=== PATIENT | male | born 1960 | race Hispanic/Latino ===

== ENCOUNTER 2020-11-18 13:06 | Inpatient (IN) | payer SELFPAY ==
[2020-11-18 13:33] LABS: Urine Blood NEGATIVE (Negative); Urine Glucose NEGATIVE (Negative); Urine Protein 3+ (NEG)
[2020-11-18] MEDS ORDERED: NA CHLORIDE 0.9% 1,000 ML ONE (13:36)
[2020-11-18 13:40] LABS: Barbiturates NEGATIVE (NEGATIVE); Benzodiazepines NEGATIVE (NEGATIVE); Cocaine NEGATIVE (NEGATIVE); METHAMPHETAM NEGATIVE (NEGATIVE); Methadone NEGATIVE (NEGATIVE); Opiates NEGATIVE (NEGATIVE); Phencyclidine NEGATIVE (NEGATIVE); THC Cannibis NEGATIVE (NEGATIVE)
[2020-11-18 13:45] LABS: Absolute Lymphocytes (CBC) 3.1 K/uL (0.7-4.9); Basophils % 0.5 % (0-1.3); Hematocrit 42.3 % (39.6-49.0); Lymphocytes % 33.9 % (15.3-44.8); MPV 8.2 fL (7.6-11.3); Protime INR 0.97; RBC Red Blood Cell Count 4.31 M/uL (4.33-5.43)
[2020-11-18 13:58] LABS: ALT/SGPT 69 U/L (12-78); AST/SGOT 35 U/L (15-37); Albumin 3.9 g/dL (3.4-5.0); Alkaline Phosphatase 90 U/L (45-117); BUN Blood Urea Nitrogen 11 mg/dL (7-18); Bicarbonate 24 mmol/L (21-32); Bilirubin Direct < 0.1 mg/dL (0-0.2); Bilirubin Total 0.3 mg/dL (0.2-1.0); Glucose Level 160 mg/dL (74-106); Potassium 3.4 mmol/L (3.5-5.1); Protein, Total 8.1 g/dL (6.4-8.2); Sodium Level 145 mmol/L (136-145)
[2020-11-18 13:59] LABS: Creatine Phosphokinase 67 U/L (39-308); Magnesium 2.2 mg/dL (1.8-2.4); NT PRO-BNP 33 pg/mL (<125); Troponin (Emerg Dept Use Only) < 0.02 ng/mL (0.0-0.045)
--- NOTE | 2020-11-18 14:25 | RAD REPORT ---
EXAM DESCRIPTION: CT - Head Brain Wo Cont - 11/18/2020 2:18 pm CLINICAL HISTORY: Alteration of awareness/confusion COMPARISON: None TECHNIQUE: Computed axial tomography of the head was obtained. IV contrast was not requested. All CT scans are performed using dose optimization technique as appropriate and may include automated exposure control or mA/KV adjustment according to patient size. FINDINGS: An intracranial bleed is not seen . The ventricles are normal in caliber. No extra-axial fluid collection is noted. Mild low-density areas within periventricular, deep and subcortical white matter likely represent is chemic changes secondary to small vessel disease. Fluid within the sinuses/ mastoids is not seen. IMPRESSION: No acute intracranial abnormality is seen. If patient's symptoms persist MRI of the bra in would be recommended.
--- NOTE | 2020-11-18 14:38 | RAD REPORT ---
EXAM DESCRIPTION: Matt Single View11/18/2020 1:28 pm CLINICAL HISTORY: Chest pain COMPARISON: none FINDINGS: The lungs appear clear of acute infiltrate. The heart is normal size IMPRESSION: No acute abnormalities displayed
--- NOTE | 2020-11-18 14:38 | RAD REPORT ---
EXAM DESCRIPTION: CT - Angio Aorta For Dissection - 11/18/2020 2:19 pm CLINICAL HISTORY: . Chest and abdominal pain COMPARISON: None TECHNIQUE: Computed tomography angiography of the chest, abdomen pelvis were obtained. 100 cc Isovue 370 was administered intravenously. Coronal and sagittal reconstruction were performed. MIP 3D reconstruction was performed All CT scans are performed using dose optimization technique as appropriate and may include automated exposure control or mA/KV adjustment according to patient size. FINDINGS: An aortic dissection is not seen. An aortic aneurysm is not displayed. The celiac, SMA and AISHWARYA are patent . A lung consolidation is not present. A pericardial effusion is not seen. A pleural effusion is not n oted. Fatty liver. Liver is mildly enlarged. Spleen, pancreas adrenals kidneys demonstrate no significant abnormality. The appendix is normal. There no evidence diverticulitis. No ascites is noted. Small to moderate left inguinal hernia contains fat IMPRESSION: Negative for an aortic dissection.
--- NOTE | 2020-11-18 15:37 | ER ---
Nurse's Notes [facility] Name: Martinez Zuniga Age: 60 yrs Sex: Male : 1960 Arrival Date: 11/18/2020 Time: 13:09 Bed 2 Private MD: Diagnosis: Altered mental status, unspecified;Chest pain, unspecified Presentation: 11/18 13:11 Chief complaint: EMS states: Toned out for unresponsive, upon arrival pt was locked hb behind his bedroom door, was able to walk and unlock door, noted to have slurred speech, diaphoretic, and confused. BP 150/110, HR 110s, R40s, SpO2 80% on RA, improved to 90% on NRB. 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 Pt c/o chest pain and reports driiking "one beer today.". Coronavirus screen: At this time, the client does not indicate any symptoms associated with coronavirus-19. Ebola Screen: No symptoms or risks identified at this time. Initial Sepsis Screen: Does the patient meet any 2 criteria? Altered Mental Status. HR > 90 bpm. Yes Does the patient have a suspected source of infection? No. Patient's initial sepsis screen is negative. Risk Assessment: Do you want to hurt yourself or someone else? Patient reports no desire to harm self or others. Onset of symptoms was November 18, 2020. 13:11 Method Of Arrival: EMS: [facility] hb 13:11 Acuity: MÓNICA 2 hb Historical: - Allergies: 13:17 No Known Allergies; hb - Home Meds: 13:17 None [Active]; hb - PMHx: 13:17 None; hb - PSHx: 13:17 None; hb - Immunization history:: Adult Immunizations up to date. - Social history:: Smoking status: Patient reports the use of cigarette tobacco products, denies chronic smoking, but will smoke occasionally. - Family history:: not pertinent. - Hospitalizations: : No recent hospitalization is reported. Screenin:34 Abuse screen: Denies threats or abuse. Denies injuries from another. Nutritional hb screening: No deficits noted. Tuberculosis screening: No symptoms or risk factors identified. Fall Risk Total Huffman Fall Scale indicates Low Risk Score (25-44 pts). Fall prevention measures have been instituted. Side Rails Up X 2 Frequent Obs/Assesments occuring As available Patient and Family Educated on Fall Prevention Program and strategies. Assessment: 13:25 General: Appears in no apparent distress. Behavior is calm, cooperative. Pain: Pain hb currently is 4 out of 10 on a pain scale. Neuro: Level of Consciousness is obeys commands, confused, lethargic, Oriented to person. Cardiovascular: Reports chest pain, diaphoresis, Capillary refill < 3 seconds Rhythm is regular. Respiratory: Airway is patent Respiratory effort is even, unlabored, Respiratory pattern is regular, symmetrical. GI: No signs and/or symptoms were reported involving the gastrointestinal system. : No signs and/or symptoms were reported regarding the genitourinary system. EENT: No signs and/or symptoms were reported regarding the EENT system. Derm: Skin is intact, Skin is diaphoretic, Skin is pale, Skin temperature is warm. Musculoskeletal: No signs and/or symptoms reported regarding the musculoskeletal system. 14:30 Reassessment: Patient appears in no apparent distress at this time. Patient and/or hb family updated on plan of care and expected duration. Pain level reassessed. Patient is alert, oriented x 3, equal unlabored respirations, skin warm/dry/pink. 15:30 Reassessment: Patient appears in no apparent distress at this time. Patient and/or hb family updated on plan of care and expected duration. Pain level reassessed. Patient is alert, oriented x 3, equal unlabored respirations, skin warm/dry/pink. 16:30 Reassessment: Patient appears in no apparent distress at this time. Patient and/or hb family updated on plan of care and expected duration. Pain level reassessed. Patient is alert, oriented x 3, equal unlabored respirations, skin warm/dry/pink. 17:30 Reassessment: Patient appears in no apparent distress at this time. Patient and/or hb family updated on plan of care and expected duration. Pain level reassessed. Patient is alert, oriented x 3, equal unlabored respirations, skin warm/dry/pink. Vital Signs: 13:11 BP 161 / 84; Pulse 93; Resp 18; Temp 97.8(O); Pulse Ox 88% on R/A; Pain 5/10; hb 14:30 BP 162 / 79; Pulse 85; Resp 15; Pulse Ox 97% on R/A; hb 15:30 BP 170 / 82; Pulse 88; Resp 17; Pulse Ox 99% on R/A; hb 17:30 BP 168 / 70; Pulse 82; Resp 16; Pulse Ox 97% on 2 lpm NC; hb ED Course: 13:07 EKG done, by ED staff, reviewed by Fede Phillips MD. sv 13:09 Patient arrived in ED. rn 13:09 Fede Phillips MD is Attending Physician. rn 13:11 Bernarda Moe RN is Primary Nurse. hb 13:16 Triage completed. hb 13:17 Arm band placed on. hb 13:27 XRAY Chest (1 view) In Process Unspecified. EDMS 13:27 Urine collected: clean catch specimen, clear. mh5 13:27 Patient has correct armband on for positive identification. Placed in gown. Bed in low mh5 position. Call light in reach. Side rails up X 1. Side rails up X2. environmental monitoring technician on. Pulse ox on. NIBP on. 13:29 Inserted saline lock: 20 gauge in right antecubital area, using aseptic technique. hb Blood collected. 13:32 Maintain EMS IV. Dressing intact. Good blood return noted. Site clean \\T\\ dry. Gauge \\T\\ hb site: 18g LAC. 14:18 CT Head Brain wo Cont In Process Unspecified. EDMS 14:19 CT Aorta for Dissection In Process Unspecified. EDMS 15:36 Uriel Perez is Hospitalizing Provider. rn 17:30 No provider procedures requiring assistance completed. Patient admitted, IV remains in hb place. Administered Medications: 13:34 Drug: NS 0.9% 1000 ml Route: IV; Rate: 1000 ml; Site: right antecubital; hb Outcome: 15:37 Decision to Hospitalize by Provider. rn 17:30 Admitted to Tele accompanied by tech, via wheelchair, room 216, with oxygen, with hb chart, Report called to Vanesa RN 17:30 Condition: stable 17:30 Instructed on the need for admit, Demonstrated understanding of instructions. 18:24 Patient left the ED. hb Signatures: Dispatcher [employer] EDMS Sherry Poe RN RN sv Nieto, Roman, MD MD rn Baxter, Heather, RN RN hb Martinez, Maria [facility]
--- NOTE | 2020-11-18 15:37 | EDPHYS ---
Physician Documentation [facility] Name: Martinez Zuniga Age: 60 yrs Sex: Male : 1960 Arrival Date: 11/18/2020 Time: 13:09 Bed 2 Private MD: ED Physician Fede Phillips HPI: 11/18 13:26 This 60 yrs old Male presents to ER via EMS with complaints of Altered Mental rn Status. 13:26 The patient presents with decreased responsiveness. Onset: The symptoms/episode rn began/occurred this morning, at an unknown time. Possible causes: unknown. Current symptoms: In the emergency department the patient's symptoms have improved. It is unknown whether or not the patient has had similar symptoms in the past. EMS reports patient with decreased responsiveness, diaphoretic, low blood pressure, high heart rate. Improved with fluids and oxygen. Pt reports daily drinker, had "only one beer today". Reports mild chest tightness that began this morning, no radiation. . Historical: - Allergies: 13:17 No Known Allergies; hb - Home Meds: 13:17 None [Active]; hb - PMHx: 13:17 None; hb - PSHx: 13:17 None; hb - Immunization history:: Adult Immunizations up to date. - Social history:: Smoking status: Patient reports the use of cigarette tobacco products, denies chronic smoking, but will smoke occasionally. - Family history:: not pertinent. - Hospitalizations: : No recent hospitalization is reported. ROS: 13:26 Constitutional: Negative for fever, chills, and weight loss, Eyes: Negative for injury, rn pain, redness, and discharge, Cardiovascular: Negative, palpitations, and edema, + chest tightness Respiratory: Negative for shortness of breath, cough, wheezing, and pleuritic chest pain, Abdomen/GI: Negative for abdominal pain, nausea, vomiting, diarrhea, and constipation, MS/Extremity: Negative for injury and deformity, Skin: Negative for injury, rash, and discoloration, Neuro: Negative for headache, weakness, numbness, tingling, and seizure. 13:49 All other systems are negative. rn Exam: 13:49 Constitutional: This is a well developed, well nourished patient who is awake, rn somnolent, but answers all questions. + smells of ETOH. Head/Face: Normocephalic, atraumatic. Eyes: Pupils equal round and reactive to light, extra-ocular motions intact. Lids and lashes normal. Conjunctiva and sclera are non-icteric and not injected. Cornea within normal limits. Periorbital areas with no swelling, redness, or edema. ENT: dry MM Neck: Trachea midline, no thyromegaly or masses palpated, and no cervical lymphadenopathy. Supple, full range of motion without nuchal rigidity, or vertebral point tenderness. No Meningismus. Cardiovascular: Regular rate and rhythm. No pulse deficits. Respiratory: No increased work of breathing, no retractions or nasal flaring. Abdomen/GI: soft, non-tender Skin: Warm, dry MS/ Extremity: Pulses equal, no cyanosis. Neuro: Awake, GCS 15, oriented to person, place, time, and situation. Cranial nerves II-XII grossly intact. Motor strength 5/5 in all extremities. Sensory grossly intact. Vital Signs: 13:11 BP 161 / 84; Pulse 93; Resp 18; Temp 97.8(O); Pulse Ox 88% on R/A; Pain 5/10; hb 14:30 BP 162 / 79; Pulse 85; Resp 15; Pulse Ox 97% on R/A; hb 15:30 BP 170 / 82; Pulse 88; Resp 17; Pulse Ox 99% on R/A; hb 17:30 BP 168 / 70; Pulse 82; Resp 16; Pulse Ox 97% on 2 lpm NC; hb MDM: 13:09 Patient medically screened. rn 15:33 Differential Diagnosis: CVA, hypoglycemia, pneumonia, seizure, sepsis, TIA, UTI, volume rn depletion, AMI. Data reviewed: vital signs, nurses notes, lab test result(s), EKG, radiologic studies, CT scan, plain films, and as a result, I will admit patient. Counseling: I had a detailed discussion with the patient and/or guardian regarding: the historical points, exam findings, and any diagnostic results supporting the discharge/admit diagnosis, lab results, radiology results, the need for further work-up and treatment in the hospital. Response to treatment: the patient's symptoms have markedly improved after treatment, and as a result, I will discharge patient. Admission orders: after a detailed discussion of the patient's condition and case, the admit orders are written by me. ED course: Pt with neg ct head, neg ct aorta, + mild elevation of procal and lactate, patient feels much better, wants to go home, daughter and I convinced him to be observed with further testing given chest pain, hypotension at scene, confusion, and no obvious etiology. Will admit to Dr. Perez. . 11/18 13:12 Order name: Basic Metabolic Panel; Complete Time: 14:23 rn 11/18 13:12 Order name: CBC with Diff; Complete Time: 14:23 rn 11/18 13:12 Order name: LFT's; Complete Time: 14:23 rn 11/18 13:12 Order name: Magnesium; Complete Time: 14:23 rn 11/18 13:12 Order name: NT PRO-BNP; Complete Time: 14:23 rn 11/18 13:12 Order name: PT-INR; Complete Time: 14:23 rn 11/18 13:12 Order name: Troponin (emerg Dept Use Only); Complete Time: 14:23 rn 11/18 13:12 Order name: ETOH Level; Complete Time: 14:23 rn 11/18 13:12 Order name: Urine Drug Screen; Complete Time: 14:23 rn 11/18 13:12 Order name: CK; Complete Time: 14:23 rn 11/18 13:12 Order name: Procalcitonin; Complete Time: 14:30 11/18 13:12 Order name: Blood Culture Adult (2) rn 11/18 13:12 Order name: Lactate; Complete Time: 14:23 rn 11/18 13:12 Order name: CT Head Brain wo Cont; Complete Time: 14:30 rn 11/18 13:12 Order name: CT Aorta for Dissection; Complete Time: 14:40 11/18 13:12 Order name: XRAY Chest (1 view); Complete Time: 14:40 11/18 13:12 Order name: EKG; Complete Time: 13:13 11/18 13:12 Order name: Cardiac monitoring; Complete Time: 13:14 11/18 13:12 Order name: EKG - Nurse/Tech; Complete Time: 13:14 11/18 13:12 Order name: IV Saline Lock; Complete Time: 13:34 11/18 13:12 Order name: Labs collected and sent; Complete Time: 13:34 11/18 13:12 Order name: O2 Per Protocol; Complete Time: 13:18 rn 11/18 13:12 Order name: O2 Sat Monitoring; Complete Time: 13:18 rn 11/18 13:30 Order name: Urine Dipstick--Ancillary (enter results); Complete Time: 14:23 eb 11/18 14:37 Order name: SARS-COV-2 RT PCR; Complete Time: 14:40 EDFL 11/18 17:35 Order name: Lactate Sepsis 2 HR Follow-up EDFL Administered Medications: 13:34 Drug: NS 0.9% 1000 ml Route: IV; Rate: 1000 ml; Site: right antecubital; hb Disposition: 11/18/20 15:37 Hospitalization ordered by Uriel Perez for Observation. Preliminary diagnosis are Altered mental status, unspecified, Chest pain, unspecified. - Bed requested for Telemetry/MedSurg (observation). - Status is Observation. hb - Condition is Stable. - Problem is new. - Symptoms have improved. Signatures: Dispatcher [employer] EDFL Fede Phillips MD MD rn Baxter, Heather, RN RN hb Botello, Elizabeth eb Corrections: (The following items were deleted from the chart) 13:50 13:13 CORONAVIRUS+MR.LAB.BRZ ordered. [facility] EDFL 14:00 13:26 Constitutional: Negative for fever, chills, and weight loss, Eyes: Negative for rn injury, pain, redness, and discharge, Cardiovascular: Negative for chest pain, palpitations, and edema, Respiratory: Negative for shortness of breath, cough, wheezing, and pleuritic chest pain, Abdomen/GI: Negative for abdominal pain, nausea, vomiting, diarrhea, and constipation, MS/Extremity: Negative for injury and deformity, Skin: Negative for injury, rash, and discoloration, Neuro: Negative for headache, weakness, numbness, tingling, and seizure, rn 17:00 15:37 Hospitalization Ordered by Uriel Perez for Observation. Preliminary diagnosis eb is Altered mental status, unspecified; Chest pain, unspecified. Bed requested for Telemetry/MedSurg (observation). Status is Observation. Condition is Stable. Problem is new. Symptoms have improved. rn 18:24 17:00 11/18/2020 15:37 Hospitalization Ordered by Ureil Perez for Observation. hb Preliminary diagnosis is Altered mental status, unspecified; Chest pain, unspecified. Bed requested for Telemetry/MedSurg (observation). Status is Observation. Condition is Stable. Problem is new. Symptoms have improved. eb
--- NOTE | 2020-11-18 16:33 | P.HP ---
Patient History Date of Service: 11/18/20 Physical Examination - Studies Laboratory Data (last 24 hrs) 11/18/20 13:28: PT 11.2, INR 0.97 11/18/20 13:28: WBC 9.20, Hgb 14.4, Hct 42.3, Plt Count 273 11/18/20 13:28: Sodium 145, Potassium 3.4 L, BUN 11, Creatinine 1.26, Glucose 160 H, Magnesium 2.2, Total Bilirubin 0.3, AST 35, ALT 69, Alkaline Phosphatase 90 Assessment and Plan - Advance Directives Does patient have a Living Will: No Does patient have a Durable POA for Healthcare: No
--- NOTE | 2020-11-18 17:51 | P.HP ---
Certification for Inpatient Patient admitted to: Observation With expected LOS: <2 Midnights Practitioner: I am a practitioner with admitting privileges, knowledge of patient current condition, hospital course, and medical plan of care. Services: Services provided to patient in accordance with Admission requirements found in Title 42 Section 412.3 of the Code of Federal Regulations Patient History Date of Service: 11/18/20 Reason for admission: Hypotension History of Present Illness: 60 year old gentleman with no known past medical history except regular alcohol use was brought to the emergency department due to an episode of altered mental status and hypotension. Patient reports a bee sting while working outside in his yard. He went in the house to some garlic after which family reports patient became confused. 911 was called, per report EMS found him with low blood pressure. He was also found with SaO2 of 80%, respiratory rate of 40 with slurred speech. Patient placed on non-rebreather mask given IV fluid and brought to the emergency department. Workup in the emergency department is unremarkable except elevated lactic acid and mild elevation pro calcitonin. Patient was awake and oriented x4 during my examination in the ED and was without any symptoms. Vital stable, afebrile. He is placed under observation further monitoring. Allergies No Known Allergies Allergy (Unverified 11/18/20 17:20) - Past Medical/Surgical History -: None -: None - Family History Mother -: Diabetes - Social History Smoking Status: Current every day smoker Alcohol use: Yes CD- Drugs: No Place of Residence: Home Review of Systems Other: Except as documented, all other systems reviewed and negative. Physical Examination - Physical Exam General: Alert, In no apparent distress, Oriented x3 HEENT: Mucous membr. moist/pink Neck: Supple, JVD not distended, No Thyromegaly Respiratory: Clear to auscultation bilaterally, Normal air movement Cardiovascular: No edema, Regular rate/rhythm, Normal S1 S2, No murmurs Capillary refill: <2 Seconds Gastrointestinal: Normal bowel sounds, Soft and benign, Non-distended, No ascites, No tenderness Musculoskeletal: No swelling, No erythema Integumentary: No rashes, No erythema Neurological: Normal speech, Normal strength at 5/5 x4 extr, Sensation intact, Cranial nerves 3-12 intact - Studies Laboratory Data (last 24 hrs) 11/18/20 13:28: PT 11.2, INR 0.97 11/18/20 13:28: WBC 9.20, Hgb 14.4, Hct 42.3, Plt Count 273 11/18/20 13:28: Sodium 145, Potassium 3.4 L, BUN 11, Creatinine 1.26, Glucose 160 H, Magnesium 2.2, Total Bilirubin 0.3, AST 35, ALT 69, Alkaline Phosphatase 90 Assessment and Plan - Problems (Diagnosis) (1) Anaphylaxis Current Visit: Yes Status: Acute (2) Lactic acidosis Current Visit: Yes Status: Acute - Plan I suspect anaphylaxis from the bee sting. Will place patient under observation. Hydrate with IV normal saline Will order empiric IV Rocephin given lactic acidosis. Check serial lactate. Telemetry. Check TSH. Follow blood cultures taking in the emergency department. - Advance Directives Does patient have a Living Will: No Does patient have a Durable POA for Healthcare: No
[2020-11-18] MEDS ORDERED: ONDANSETRON 4 MG/2 ML VIAL IV PRN (18:22)
[2020-11-18] MEDS ORDERED: ACETAMINOPHEN 500 MG TAB PO PRN (18:22)
[2020-11-18 18:32] VITALS: BMI 26.6
[2020-11-18] MEDS: NA CHLORIDE 0.9% 1,000 ML IV SCH (18:55)
[2020-11-18 21:21] VITALS: O2SAT 98
[2020-11-19] MEDS: NA CHLORIDE 0.9% 1,000 ML IV SCH (03:10)
[2020-11-19 03:34] LABS: Urine Appearance CLEAR; Urine Bilirubin NEGATIVE (NEG); Urine Blood NEGATIVE (Negative); Urine Color YELLOW; Urine Glucose NEGATIVE (Negative); Urine Protein NEGATIVE (NEG); Urine Specific Gravity >=1.030 (1.005-1.030); Urine Urobilinogen 0.2 mg/dL (0.2-1.0)
[2020-11-19 03:39] LABS: Urine Microscopic Reflex NO UMIC
[2020-11-19 06:00] LABS: Absolute Lymphocytes (CBC) 2.9 K/uL (0.7-4.9); Basophils % 0.2 % (0-1.3); Hematocrit 38.2 % (39.6-49.0); Lymphocytes % 26.4 % (15.3-44.8); MPV 8.7 fL (7.6-11.3); RBC Red Blood Cell Count 3.91 M/uL (4.33-5.43)
[2020-11-19 06:15] LABS: Albumin 3.4 g/dL (3.4-5.0); Bilirubin Total 0.3 mg/dL (0.2-1.0); Magnesium 2.2 mg/dL (1.8-2.4); Phosphorus 3.5 mg/dL (2.5-4.9); Potassium 3.7 mmol/L (3.5-5.1); Protein, Total 7.2 g/dL (6.4-8.2); Thyroid Stimulating Hormone 3.34 uIU/mL (0.360-3.740)
[2020-11-19] MEDS ORDERED: CLOPIDOGREL 75 MG TABLET PO SCH (09:00)
[2020-11-19] MEDS ORDERED: ENOXAPARIN 80 MG/0.8 ML SQ SCH (09:00)
[2020-11-19] MEDS ORDERED: CEFTRIAXONE/SWI 1gm 1 GM/10 ML SYR IV SCH (09:00)
[2020-11-19] MEDS ORDERED: CEFTRIAXONE 1 GM/NS 50 ML 1 GM/50 ML BAG IV SCH (09:00)
[2020-11-19] MEDS ORDERED: POTASSIUM 25 MEQ EFFERV TAB PO ONE (09:00)
[2020-11-19] MEDS ORDERED: ENOXAPARIN 40 MG/0.4 ML SQ SCH (09:00)
[2020-11-19 09:04] VITALS: TEMP 97.7
--- NOTE | 2020-11-19 09:50 | EKG ---
Test Date: 2020-11-18 Test Time: 13:07:31 Sample Dye Mixer: JACKSON MEASUREMENT RESULTS: Intervals: Rate: 88 AR: 158 QRSD: 74 QT: 390 QTc: 471 [place]: P: 66 AR: 158 QRS: 68 T: 70 INTERPRETIVE STATEMENTS: Normal sinus rhythm Nonspecific ST abnormality Abnormal ECG No previous ECG available for comparison Electronically Signed On 11-19-20 09:47:57 CDT by Facundo العلي
--- NOTE | 2020-11-19 10:49 | CON ---
Date of Consultation: 11/19/2020 Reason For Consultation: Elevated troponin. History Of Present Illness: The patient is a 60-year-old male, [place], no past medical histo ry, got bitten by a bee while he was working outside, became diaphoretic, hypotensive, unresponsive, low O2 saturation. By the time the EMT got there and gave him fluid, he was back to normal, alert an d oriented x4, and his blood pressure went back to normal. He never had any chest pain, nausea, vomi ting. Denied any PND, orthopnea, or pedal edema. Denied any palpitation. Denied any fever or chill s. Past Medical History: Negative. Allergies: NONE. Medications: At home are none. Review of Systems: Negative. Social History: Positive for alcohol use. Physical Examination: Vital Signs: Stable. He was slightly hypertensive. HEENT: Negative. Neck: Supple with no bruit. Chest: Clear. Cardiac: Revealed a regular rate and rhythm. No murmurs, gallops, or rubs. Abdomen: Benign. Extremities: Revealed no clubbing, cyanosis, or edema. Diagnostic Data: Showed a troponin of 0.18. Procalcitonin was minimally elevated. CT dissection of the chest was negative for pulmonary embolus. Chest x-ray was negative. CT of his head was negativ e. Impression And Plan: Anaphylactic reaction to the bee with hypotension causing the troponin to be el evated. The patient is back to normal. As far as mental status is concerned, his vital signs are st able. He is in sinus rhythm. Has negative chest x-ray, negative CT of his head, negative CT dissect ion. I am comfortable with him going home today without any further therapy. He can follow up with the primary care physician regarding his blood pressure. I suggested he but an EpiPen to carry along with him because of his reaction to the bee. I will discuss the case further with Dr. Perez. KEMAR/CHERYLE Voice ID: [id number] Report ID: [id number]
--- NOTE | 2020-11-19 10:52 | P.DS ---
Admission Date: 11/19/20 Discharge Date: 11/19/20 Disposition: ROUTINE DISCHARGE Discharge Condition: FAIR Reason for Admission: Hypotension Consultations: Cardiology-Dr. العلي - Problems (1) Anaphylaxis Current Visit: Yes Status: Acute (2) Lactic acidosis Current Visit: Yes Status: Acute Brief History of Present Illness: 60 year old gentleman with no known past medical history except regular alcohol use was brought to the emergency department due to an episode of altered mental status and hypotension. Patient reports a bee sting while working outside in his yard. He went in the house to some garlic after which family reports patient became confused. 911 was called, per report EMS found him with low blood pressure. He was also found with SaO2 of 80%, respiratory rate of 40 with slurred speech. Patient placed on non-rebreather mask given IV fluid and brought to the emergency department. Workup in the emergency department is unremarkable except elevated lactic acid and mild elevation pro calcitonin. Patient was awake and oriented x4 during my examination in the ED and was without any symptoms. EKG sinus rhythm and showed no ischemic changes. Vital stable, afebrile. He was hospitalized for further monitoring. Hospital Course: Patient admitted to the medical floor troponin trended up slightly. Patient was hypertensive throughout the hospital stay. Patient seen by cardiology. Elevated troponin deemed to be secondary to hypotension from the bee sting. Patient deemed stable for discharge per cardiology. He is prescribed EpiPen to prevent anaphylactic shock in case he gets stung again by bee or an insect. Vital Signs/Physical Exam: Temp Pulse Resp BP Pulse Ox 97.7 F 77 16 184/81 H 98 11/19/20 08:00 11/19/20 09:35 11/19/20 08:00 11/19/20 09:35 11/19/20 08:00 General: Alert, In no apparent distress, Oriented x3 HEENT: PERRLA Neck: Supple, JVD not distended Respiratory: Clear to auscultation bilaterally, Normal air movement Cardiovascular: No edema, Regular rate/rhythm, Normal S1 S2 Gastrointestinal: Normal bowel sounds, Soft and benign, Non-distended Musculoskeletal: No swelling, No tenderness Integumentary: No rashes Neurological: Normal strength at 5/5 x4 extr, Cranial nerves 3-12 intact Laboratory Data at Discharge: WBC 11.00 K/uL (4.3-10.9) H D 11/19/20 05:01 Hgb 13.4 g/dL (13.6-17.9) L 11/19/20 05:01 Hct 38.2 % (39.6-49.0) L 11/19/20 05:01 Plt Count 237 K/uL (152-406) 11/19/20 05:01 PT 11.2 SECONDS (9.5-12.5) 11/18/20 13:28 INR 0.97 11/18/20 13:28 Sodium 142 mmol/L (136-145) 11/19/20 05:01 Potassium 3.7 mmol/L (3.5-5.1) 11/19/20 05:01 BUN 11 mg/dL (7-18) 11/19/20 05:01 Creatinine 0.89 mg/dL (0.55-1.3) 11/19/20 05:01 Glucose 108 mg/dL (74-106) H 11/19/20 05:01 Phosphorus 3.5 mg/dL (2.5-4.9) 11/19/20 05:01 Magnesium 2.2 mg/dL (1.8-2.4) 11/19/20 05:01 Total Bilirubin 0.3 mg/dL (0.2-1.0) 11/19/20 05:01 AST 26 U/L (15-37) 11/19/20 05:01 ALT 57 U/L (12-78) 11/19/20 05:01 Alkaline Phosphatase 69 U/L (45-117) 11/19/20 05:01 Troponin I 0.14 ng/mL (0.0-0.045) H 11/18/20 23:22 Triglycerides 216 mg/dL (<150) H 11/19/20 05:01 Cholesterol 160 mg/dL (<200) 11/19/20 05:01 HDL Cholesterol 41 mg/dL (40-60) 11/19/20 05:01 Cholesterol/HDL Ratio 3.90 11/19/20 05:01 Home Medications: Amlodipine [Norvasc*] 10 mg PO DAILY #30 tab 11/19/20 Aspirin [Aspirin EC 81 MG] 81 mg PO DAILY #30 tablet.dr 11/19/20 EPINEPHrine [Epinephrine] 0.15 mg IJ 1X #1 auto.injct 11/19/20 New Medications: Aspirin [Aspirin EC 81 MG] 81 mg PO DAILY #30 tablet. EPINEPHrine [Epinephrine] 0.15 mg IJ 1X #1 auto.injct Amlodipine [Norvasc*] 10 mg PO DAILY #30 tab Diet: AHA Activity: Ad zev Followup: NONE,NONE [Primary Care Provider] - Time spent managing pt's care (in minutes): 27
[2020-11-19 12:07] VITALS: BP 160/80
[2020-11-19] MEDS ORDERED: METOPROLOL TAR 25 MG TAB PO SCH (18:00)
== END 2020-11-19 12:45 | disposition home or self-care (01) | DRG 918 ==
LOC: ER 13:06 → ERHOLD 16:30 → 2ND 17:47 → OBSVTOIN 11-19 10:41
PROVIDERS: ADMIT Internal Medicine; ATTEND Internal Medicine
DX: T63.441A Toxic effect of venom of bees, accidental (unintentional), initial encounter (principal); T78.2XXA Anaphylactic shock, unspecified, initial encounter; E87.2 Acidosis; I95.9 Hypotension, unspecified; F17.210 Nicotine dependence, cigarettes, uncomplicated; R77.8 Other specified abnormalities of plasma proteins; Z79.82 Long term (current) use of aspirin; Z79.899 Other long term (current) drug therapy; Z20.822 Contact with and (suspected) exposure to COVID-19
CPT/HCPCS: 36415; 70450; 71045; 71275; 74175; 80048; 80053; 80061; 80076; 80307; 80320; 81003; 82550; 82565; 83605; 83735; 83880; 84100; 84145; 84443; 84484; 85025; 85610; 87040; 93005; 94760; 99285; G0378; J0696; J1650; J7030; Q9967; U0003